=== PATIENT | female | born 1980 | race Caucasian/White ===

== ENCOUNTER → 2018-12-07 | Outpatient (CLI) | payer OTHER ==
--- NOTE | 2018-12-07 15:28 | RADIOLOGY IMAGING REPORT ---
FACILITY: [facility] PATIENT NAME: Lyla Bee : 1980 MR: [id number] V: [id number] EXAM DATE: ORDERING PHYSICIAN: RUBIN BREWER TECHNOLOGIST: Location: [facility] - [place], [place] Patient: Lyla Bee : 1980 Visit/Account:[id number] Date of Sevice: 12/07/2018 TRANSVAGINAL NON-OB HISTORY: Right lower quadrant pain since last Thursday, dysmenorrhea TECHNIQUE: Transvaginal ultrasound pelvis. COMPARISON: None. FINDINGS: Uterus: ; 7.2 cm length x 5.2 cm AP x 5 cm transverse. Myometrium: There is a 2.4 x 1.7 x 2.5 cm anterior subserosal fundal fibroid. Endometrium: Unremarkable; double thickness 6.4 mm. Cervix: Nabothian cysts. Ovaries: Right - 2.3 x 1.1 x 2.5 cm Left - 1.6 x 1.3 x 2.7 cm Blood flow is documented in each ovary by duplex Doppler ultrasound. Adnexa: Grossly unremarkable. Free pelvic fluid: None. IMPRESSION: There is a 2.4 x 1.7 x 2.5 cm subserosal anterior fundal fibroid Nabothian cysts Report Dictated By: Daniela Neal MD at 12/07/2018 3:21 PM Report E-Signed By: Daniela Neal MD at 12/07/2018 3:24 PM WSN:[id number]
== END ==
LOC: US 13:37
PROVIDERS: ATTEND Nurse Practitioner Family
DX: D25.2 Subserosal leiomyoma of uterus (principal); N88.8 Other specified noninflammatory disorders of cervix uteri; R10.31 Right lower quadrant pain; N94.6 Dysmenorrhea, unspecified
CPT/HCPCS: 76830